=== PATIENT | female | born 2000 | race Caucasian/White ===

== ENCOUNTER 2021-08-19 16:39 | Inpatient (IN) | payer OTHER ==
[~2021-08-19 16:39] MED LIST: COLACE 100MG C100 MG PO; FEOSOL325 MG PO; IBUPROFEN600 MG PO; NORCO 5-325 TA1 EACH PO; TRANDATE200 MG PO; ZOFRAN ODT 4 MG4 MG GT
[2021-08-19 17:46] LABS: HEMOGLOBIN 11.5 gm/dl (12.3-15.3); RED BLOOD COUNT 4.22 M/UL (4.00-5.10); WHITE BLOOD COUNT 6.9 K/UL (4.5-11.0)
[2021-08-19] MEDS ORDERED: FERROUS SULFAT325 MG PO (18:24)
[2021-08-19] MEDS ORDERED: PRENATAL VITAM1 EAC6 PO (18:24)
[2021-08-20] MEDS ORDERED: IBUPROFEN600 MG PO (16:05)
[2021-08-20] MEDS ORDERED: DOCUSATE SODIU100 MG PO (16:05)
[2021-08-21 06:28] LABS: HEMOGLOBIN 10.6 gm/dl (12.3-15.3)
== END 2021-08-22 14:06 | disposition home or self-care (01) | DRG 807 ==
LOC: GENOP 16:39 → OB 08-20 05:39
PROVIDERS: Obstetrics & Gynecology; ADMIT Obstetrics & Gynecology
PROC: 10E0XZZ Delivery of Products of Conception, External Approach (ICD-10-PCS; principal; 2021-08-20)
PROC: 10907ZC Drainage of Amniotic Fluid, Therapeutic from Products of Conception, Via Natural or Artificial Opening (ICD-10-PCS; 2021-08-20)
PROC: 10H07YZ Insertion of Other Device into Products of Conception, Via Natural or Artificial Opening (ICD-10-PCS; 2021-08-20)
PROC: 3E0234Z Introduction of Serum, Toxoid and Vaccine into Muscle, Percutaneous Approach (ICD-10-PCS; 2021-08-20)
DX: O80 Encounter for full-term uncomplicated delivery (principal); Z37.0 Single live birth; Z3A.39 39 weeks gestation of pregnancy; Z88.8 Allergy status to other drugs, medicaments and biological substances; Z82.49 Family history of ischemic heart disease and other diseases of the circulatory system; Z83.3 Family history of diabetes mellitus; Z23 Encounter for immunization
CPT/HCPCS: 36415; 81001; 82800; 85014; 85018; 85025; 85461; 86850; 86900; 86901; 90715; C9113; J2405; J2590; J2790; J7120